=== PATIENT | male | born 1980 | race Caucasian/White ===

== ENCOUNTER 2016-11-21 07:48 | Emergency (ER) | payer MEDICAID ==
[2016-11-21] MEDS ORDERED: SODIUM CHLORIDE 0.9% 1,000 ML IV ONE (08:21)
[2016-11-21] MEDS ORDERED: HYDROmorphone 1 MG/ML SYRINGE IVP STA (08:21)
[2016-11-21] MEDS ORDERED: KETOROLAC 60 MG/2 ML VIAL IVP STA (08:21)
[2016-11-21] MEDS ORDERED: ONDANSETRON 4 MG/2 ML VIAL IVP STA (08:21)
[2016-11-21] MEDS ORDERED: HYDROmorphone 1 MG/ML SYRINGE ONE (08:32)
[2016-11-21] MEDS ORDERED: KETOROLAC 30 MG/ML VIAL ONE (08:32)
[2016-11-21] MEDS ORDERED: ONDANSETRON 4 MG/2 ML VIAL ONE (08:32)
== END 2016-11-21 09:59 | disposition home or self-care (01) ==
DX: N20.0 Calculus of kidney (principal); I10 Essential (primary) hypertension
CPT/HCPCS: 74176; 81001; 87086; 96361; 96374; 96375; 99283; 99284; J1170

== ENCOUNTER 2016-12-12 08:00 | Emergency (ER) | payer MEDICAID ==
[2016-12-12] MEDS ORDERED: IBUPROFEN 400 MG TABLET PO STA (08:29)
[2016-12-12] MEDS ORDERED: TAMSULOSIN 0.4 MG CAPSULE PO STA (08:29)
[2016-12-12] MEDS ORDERED: IBUPROFEN 400 MG TABLET PO ONE (08:33)
[2016-12-12] MEDS ORDERED: TAMSULOSIN 0.4 MG CAPSULE ONE (08:33)
== END 2016-12-12 09:53 | disposition home or self-care (01) ==
DX: N23 Unspecified renal colic (principal); Z87.442 Personal history of urinary calculi; I10 Essential (primary) hypertension
CPT/HCPCS: 74000; 81001; 99283; 99284; A9270

== ENCOUNTER 2017-04-21 17:00 | Outpatient (CLI) | payer MEDICAID ==
--- NOTE | 2017-04-22 09:31 | XRAY Report ---
TWO-VIEW CHEST: 04/21/2017 CLINICAL INDICATION: Cough. FINDINGS: Frontal and lateral views of the chest demonstrate a normal cardiac silhouette. The lungs are clear. No effusion or pneumothorax is present. IMPRESSION: NORMAL CHEST. JOB #: [id number] EXT JOB #:[id number]
== END 2017-04-21 17:01 | disposition home or self-care (01) ==
LOC: DI.S 17:00
PROVIDERS: ATTEND Nurse Practitioner Family
DX: R05 Cough (principal)
CPT/HCPCS: 71020

== ENCOUNTER 2020-01-30 19:21 | Outpatient (CLI) | payer OTHER | END 2020-01-30 19:22 | disposition home or self-care (01) | LOC: COV 19:21 | PROVIDERS: ATTEND Family Medicine | DX: R05 Cough (principal); R06.02 Shortness of breath; R06.2 Wheezing; R53.83 Other fatigue | CPT/HCPCS: 81599 ==